=== PATIENT | female | born 2000 | race Caucasian/White ===

== ENCOUNTER 2018-10-28 13:50 | Emergency (ER) | payer OTHER ==
[2018-10-28 16:24] VITALS: BP 000/00
--- NOTE | 2018-10-29 06:55 | ED ---
Upper Extremity Pain - HPI Summary HPI Summary: Patient is a 18-year-old female who presents to the ED with left elbow pain. She states she awoke with left lateral elbow pain which is extending down the arm into the fingertips with intermittent numbness and tingling as well as of the arm running through the biceps as well as the triceps, not involving the shoulder. She states she has never had this pain before. She denies any injury or trauma. She denies any color or temperature changes to the fingertips. She denies any overuse injury. She states she works at a [employer] shop and does not do any heavy lifting or any repetitive motions. She denies any pain to the shoulder. She is tearful on arrival due to pain and states the pain is rated an 8/10, constant, burning and aching. Denies any pain to the neck. - History of Current Complaint Chief Complaint: EDExtremityUpper Stated Complaint: LEFT ARM PAIN PER PT Time Seen by Provider: 10/28/18 14:10 Hx Obtained From: Patient Onset/Duration: Started Hours Ago Timing: Constant Severity Initially: Moderate Severity Currently: Moderate Pain Location: Forearm Character: Aching Aggravating Factor(s): Nothing Alleviating Factor(s): Nothing Associated Signs & Symptoms: Positive: Negative Related History: Dominant Hand Right - Risk Factors Non-Orthopedic Risk Factor: Negative DVT Risk Factors: Negative - L Septic Arthritis Risk Factor: Negative Compartment Syndrome Risk Factors: Pain, Paresthesias - Allergies/Home Medications Allergies/Adverse Reactions: Allergies Allergy/AdvReac Type Severity Reaction Status Date / Time PINEAPPLE Allergy Anaphylatic Uncoded 10/28/18 13:51 Shock Home Medications: Home Medications Cholecalciferol (Vitamin D3) [Vitamin D-3] 2,000 unit PO DAILY 10/28/18 [ History Confirmed 10/28/18] Cyanocobalamin (Vitamin B-12) [B-12] 1,000 mcg PO DAILY 10/28/18 [History Confirmed 10/28/18] Ferrous Gluconate [Iron 27] 240 mg PO DAILY 10/28/18 [History Confirmed 10/28/18 ] Multivitamin [Multivitamins] 1 cap PO DAILY 10/28/18 [History Confirmed 10/28/18 ] PMH/Surg Hx/FS Hx/Imm Hx Previously Healthy: Yes Endocrine/Hematology History: Denies: Hx Diabetes Cardiovascular History: Denies: Hx Hypertension, Hx Pacemaker/ICD History: Denies: Hx Renal Disease Sensory History: Denies: Hx Hearing Aid Psychiatric History: Denies: Hx Panic Disorder - Immunization History Hx Pertussis Vaccination: No Immunizations Up to Date: Yes Infectious Disease History: No Infectious Disease History: Denies: Traveled Outside the [place] in Last 30 Days - Social History Occupation: Employed Full-time Lives: With Family Alcohol Use: None Hx Substance Use: No Substance Use Type: Reports: None Hx Tobacco Use: Yes - I Smoking Status (MU): Light Every Day Tobacco Smoker Review of Systems Constitutional: Negative Negative: Fever, Chills, Fatigue, Skin Diaphoresis Negative: Palpitations, Chest Pain Negative: Shortness Of Breath, Cough Negative: no symptoms reported, see HPI Positive: Arthralgia - right lateral and medial elbow pain. Negative: Decreased ROM, Edema Neurological: Negative Psychological: Normal All Other Systems Reviewed And Are Negative: Yes Physical Exam Triage Information Reviewed: Yes Vital Signs On Initial Exam: Initial Vitals Temp Pulse Resp BP Pulse Ox 97.6 F 101 14 109/75 100 10/28/18 13:53 10/28/18 13:53 10/28/18 13:53 10/28/18 13:53 10/28/18 13:53 Vital Signs Reviewed: Yes Appearance: Positive: Well-Appearing, Well-Nourished Skin: Positive: Warm, Skin Color Reflects Adequate Perfusion Head/Face: Positive: Normal Head/Face Inspection Eyes: Positive: EOMI, Conjunctiva Clear Neck: Positive: No Lymphadenopathy Respiratory/Lung Sounds: Positive: Clear to Auscultation, Breath Sounds Present Cardiovascular: Positive: RRR, Pulses are Symmetrical in both Upper and Lower Extremities Musculoskeletal: Positive: Strength/ROM Intact. Negative: Edema Left, Edema Right Neurological: Positive: Alert, Oriented to Person Place, Time, Speech Normal Psychiatric: Positive: Normal, Affect/Mood Appropriate AVPU Assessment: Alert Diagnostics - Vital Signs Vital Signs Temp Pulse Resp BP Pulse Ox 10/28/18 16:22 0 F 76 15 000/00 100 10/28/18 13:53 97.6 F 101 14 109/75 100 - Laboratory Lab Statement: Any lab studies that have been ordered have been reviewed, and results considered in the medical decision making process. Course/Dx - Course Course Of Treatment: On physical examination, patient has pain to the medial and lateral epicondyles with radiation of pain to the forearm into the fingertips of the ring and little finger. She is also endorsing pain bicep and tricep of the ipsilateral arm. Denies any problems with director professional services strength. She is endorsing 9/10 pain, constant and aching and burning. She denies any color or temperature changes. She does endorse the tingling as to being intermittent and present 2 days. She has never had this before. Discussed with patient length treatment options. This appears to be tendinitis with nerve involvement. No pain to the neck and flexion and extension as well as rotation of the neck appears to be intact and without discomfort. Worsening pain on flexion and extension at the elbow joint. Denies any pain to the wrist joint or shoulder joint. Good cap refill. Pulses +2 intact bilaterally to the radial pulse. Good director professional services strength 5/5 in both upper extremities. Tingling to the ring and little finger, over the past 3 days, however none currently. She will be given steroids, encouraged ibuprofen and also is given tramadol for her discomfort. She understands return precautions and offers no complaints at this time. She'll be diagnosed with tendinitis. - Diagnoses Provider Diagnoses: Tendinitis of elbow Discharge - Sign-Out/Discharge Documenting (check all that apply): Patient Departure Patient Received Moderate/Deep Sedation with Procedure: No - Discharge Plan Condition: Stable Disposition: HOME Prescriptions: predniSONE TAB* [Deltasone TAB*] 50 mg PO DAILY #5 tab traMADol TAB* [Ultram*] 50 mg PO Q8H PRN #6 tab MDD 3 PRN Reason: Pain Patient Education Materials: Tennis Elbow (ED) Referrals: Magdiel Costa MD [Medical Doctor] - No Primary Care Phys,NOPCP [Primary Care Provider] - Additional Instructions: I believe you have some tendonitis with a nerve pain You continue to have strength and no neck pain (outside of your baseline) so I do not believe this is originating in the neck Please take ibuprofen 600mg three times daily Prednisone once daily x 5 days Tramadol three times daily only as needed for discomfort not well controled with ibuprofen ice to the area as much as possible Keep eddie bandage applied or apply a bandage (*elbow brace/badnage) from a sporting goods store Follow up with ortho only if symptoms persist - Billing Disposition and Condition Condition: STABLE Disposition: Home
== END 2018-10-28 16:22 | disposition home or self-care (01) ==
LOC: ED 13:50
DX: M77.9 Enthesopathy, unspecified (principal); F17.210 Nicotine dependence, cigarettes, uncomplicated
CPT/HCPCS: 99282